=== PATIENT | male | born 1960 | race Caucasian/White ===

== ENCOUNTER 2025-01-03 02:51 | Emergency (ER) | payer OTHER ==
[~2025-01-03] VITALS: Ht 175.3 cm; Wt 118.0 kg
[2025-01-03 02:52] VITALS: TEMP 98.1
[2025-01-03 03:17] LABS: BASOPHILS # (AUTO) 0.1 X10'3 (0-0.2); EOSINOPHILS # (AUTO) 0.3 X10'3 (0-0.9); EOSINOPHILS % (AUTO) 3.9 % (0-6); HEMATOCRIT 44.3 % (42.0-52.0); HEMOGLOBIN 14.8 g/dl (14.0-17.9); LYMPHOCYTES # (AUTO) 1.7 X10'3 (1.1-4.8); LYMPHOCYTES % (AUTO) 21.6 % (21-51); MEAN CORPUSCULAR HEMOGLOBIN 28.5 PG (27.0-31.0); MEAN CORPUSCULAR HGB CONC 33.5 g/dL (33.0-36.5); MEAN CORPUSCULAR VOLUME 84.9 FL (78-98); MONOCYTES % (AUTO) 12.3 % (2-12); NEUTROPHILS # (AUTO) 4.9 X10'3 (1.8-7.7); NEUTROPHILS % (AUTO) 61.2 % (42-75); PLATELET COUNT 234 X10'3 (140-440); RED BLOOD COUNT 5.21 X10'6 (4.70-6.10); RED CELL DISTRIBUTION WIDTH 14.8 % (11.5-14.5); WHITE BLOOD COUNT 7.9 X10'3 (4.5-11.0)
[2025-01-03 03:35] LABS: ALANINE AMINOTRANSFERASE 35 U/L (12-78); ALBUMIN 3.4 G/DL (3.4-5.0); ALBUMIN/GLOBULIN RATIO 1.1 (1.1-1.5); ALKALINE PHOSPHATASE 82 IU/L (46-116); ANION GAP 9 (8-16); ASPARTATE AMINO TRANSFERASE 18 U/L (10-37); BILIRUBIN,TOTAL 0.4 MG/DL (0.1-1.0); BLOOD UREA NITROGEN 17 MG/DL (7-18); BUN/CREATININE RATIO 15.3 (10.0-20.0); CALCIUM 8.7 MG/DL (8.5-10.1); CHLORIDE 107 MMOL/L (99-107); CREATININE 1.11 MG/DL (0.60-1.10); GLUCOSE 92 MG/DL (70-104); POTASSIUM 3.5 MMOL/L (3.5-5.1); SODIUM 141 MMOL/L (135-145); TOTAL CARBON DIOXIDE 24.7 MMOL/L (24-32); TOTAL PROTEIN 6.5 G/DL (6.4-8.2); eCRCL 69 ML/MIN; eGFR 67 ML/MIN
--- NOTE | 2025-01-03 03:39 | RADIOLOGY REPORT ---
CHEST RADIOGRAPH Indication: CP Technique: Single frontal view of the chest was obtained COMPARISON: None FINDINGS: Lines and Tubes: None Lungs: Clear Pleura: No effusion. No pneumothorax. Cardiomediastinal contours: Unremarkable Bones: Unremarkable IMPRESSION: 1. No acute disease.
[2025-01-03 03:42] LABS: PRO BRAIN NATRIURETIC PEPTIDE < 30 PG/ML (0-125)
--- NOTE | 2025-01-03 04:31 | Physician Documentation ---
History of Present Illness ~ Chief Complaint: Chest Pain Stated Complaint: SHORT OF BREATH Time Seen by MD: 04:29 Mode of Arrival: EMS HPI Patient presents to the emergency room for evaluation of chest discomfort. History of coronary artery disease but he states that this feels different. He states he woke up out of sleep feeling short of breath with chest tightness which resolved with nitroglycerin the patient states this is usual for when he takes nitroglycerin that it gives him a headache and makes his chest pain go away. Patient does smoke. No current symptoms and patient is asking to leave. He states he feels like he had a panic attack Medication Reconciliation Allergies: Coded Allergies: azithromycin (Verified Adverse Reaction, Unknown, SICK TO STOMACHE, 01/03/25) Uncoded Allergies: PENICILLIN (Allergy, Severe, 01/03/25) Review of Systems ROS All review of systems negative except as per HPI Physical Exam Vital Signs: Temperature: 98.1, Source: Oral, Heart Rate: 80, Respiratory Rate: 16, BP: 129/88, Pulse Oximetry: 96, Weight: 118.000 Physical Exam General: Patient is awake, alert, oriented x4 in no acute distress and well appearing.~ Head: Normocephalic and atraumatic. Eyes: Conjunctival normal. EOMI. PERRL. ENT: Mucous membranes moist. Neck: Supple, trachea is midline. Chest: Clear to auscultation bilaterally without rales, rhonchi, or wheezes. There is no accessory muscle use or retractions. Cardiac: RRR without murmurs, gallops, or rubs. Extremities: Normal strength. Normal range of motion. No deformities or edema. No calf tenderness to palpation Progress Results/Orders Results/Orders Orders - WES WARD MD Chest,Single View (01/03/25 03:10) Monitor (01/03/25 02:58) Saline Lock (01/03/25 02:58) Oxygen (01/03/25 02:58) Electrocardiogram (01/03/25 02:58) Hs Troponin I W Calculations (01/03/25 04:58) Hs Troponin I W Calculations (01/03/25 05:58) Completed Orders - WES WARD MD Chest,Single View (01/03/25 03:10) Cbc/Diff (01/03/25 02:58) PBNP (01/03/25 02:58) CMP (01/03/25 02:58) Hs Troponin I W Calculations (01/03/25 02:58) Vital Signs 01/03/25 01/03/25 01/03/25 01/03/25 02:52 03:01 03:06 04:05 Temp 98.1 Pulse 88 80 Resp 16 16 16 B/P (MAP) 116/69 129/88 (102) Pulse Ox 95 94 96 O2 Delivery Nasal Cannula* O2 Flow Rate 4 FiO2 36 Laboratory Tests Test 01/03/25 03:06 White Blood Count 7.9 Red Blood Count 5.21 Hemoglobin 14.8 Hematocrit 44.3 Mean Corpuscular Volume 84.9 Mean Corpuscular Hemoglobin 28.5 Mean Corpuscular Hemoglobin Concent 33.5 Red Cell Distribution Width 14.8 H Platelet Count 234 Mean Platelet Volume 7.0 L Neutrophils (%) (Auto) 61.2 Lymphocytes (%) (Auto) 21.6 Monocytes (%) (Auto) 12.3 H Eosinophils (%) (Auto) 3.9 Basophils (%) (Auto) 1.0 Neutrophils # (Auto) 4.9 Lymphocytes # (Auto) 1.7 Monocytes # (Auto) 1.0 H Eosinophils # (Auto) 0.3 Basophils # (Auto) 0.1 CBC Comment Sodium Level 141 Potassium Level 3.5 Chloride Level 107 Carbon Dioxide Level 24.7 Anion Gap 9 Blood Urea Nitrogen 17 Creatinine 1.11 H Estimated GFR/1.73 m2 67 BUN/Creatinine Ratio 15.3 Glucose Level 92 Calcium Level 8.7 Total Bilirubin 0.4 Aspartate Amino Transf (AST/SGOT) 18 Alanine Aminotransferase (ALT/SGPT) 35 Alkaline Phosphatase 82 Troponin I High Sensitivity 4 Pro-B-Type Natriuretic Peptide < 30 Total Protein 6.5 Albumin 3.4 Globulin 3.1 Albumin/Globulin Ratio 1.1 Chemistry Comments Re-Evaluation Re-Evaluation : Progress Patient's nasal cannula removed and he is saturating in the high 90s on room air EKG/XRAY/CT/US/VASC/MRI EKG : Additional Comment EKG interpreted by myself shows time of 0256, rate 81, sinus rhythm, normal axis, no ST changes Chest X-Ray : Additional Comments Exam: CHEST,SINGLE VIEW CHEST RADIOGRAPH Indication: CP Technique: Single frontal view of the chest was obtained COMPARISON: None FINDINGS: Lines and Tubes: None Lungs: Clear Pleura: No effusion. No pneumothorax. Cardiomediastinal contours: Unremarkable Bones: Unremarkable IMPRESSION: 1. No acute disease. Medical Decision Making Findings Patient presents to the emergency room with chest pain. Differentials include but are not limited to ACS, pulmonary embolism, musculoskeletal pain, panic attack, aortic pathology therefore emergent labs and imaging indicated. Chest x-ray is reassuring. Labs reassuring for negative troponins. Patient's chest pain is atypical in nature with a heart score of three. Patient is asking to leave. He has been advised to stop smoking. As patient is currently asymptomatic he had not feel he was suffering from pulmonary embolism or acute aortic pathology. Chest pain relieved with nitroglycerin however this is not increased in frequency and may represent stable angina or resolution of panic attack. Departure Disposition: HOME / SELF CARE / HOMELESS Impression: Primary Impression: Chest pain Condition: Stable Discharge Instructions: Nonspecific Chest Pain, Adult Additional Instructions: Follow up with your doctor regarding your chest pain. Return for worsening of symptoms or return if symptoms Referrals: NO PRIMARY CARE PROVIDER (PCP) Education Educated: Patient Educated regarding: diagnosis, need for follow up Signature Scribe Signature: No scribe Attestation: The note accurately reflects work and decisions made by me.Wes Ward MD 01/03/25 04:53 WES WARD MD January 03, 2025 04:31
[2025-01-03 05:22] VITALS: BP 129/88; PULSE 80; RESP 16; O2SAT 96
--- NOTE | 2025-01-03 06:52 | ELECTROCARDIOGRAPH REPORT ---
[facility] Test Date: 2025-01-03 Test Time: 02:56:42 Pat Name: AGUSTINA KIRBY Department: EMERGENCY ROOM Room: Gender: M Talent Rep: : 1960 Requested By: VINNY SAMSON Order Number: [id number] Reading MD: Measurements Intervals [place] Rate: 81 P: 46 SD: 163 QRS: 49 QRSD: 96 T: 35 QT: 379 QTc: 440 Interpretive Statements Sinus rhythm Inferior infarct, old Please click the below link to view image of tracing.
== END 2025-01-03 05:24 | disposition home or self-care (01) ==
LOC: ER 02:52
DX: R07.89 Other chest pain (principal); R06.02 Shortness of breath; I25.10 Atherosclerotic heart disease of native coronary artery without angina pectoris; Z88.1 Allergy status to other antibiotic agents
CPT/HCPCS: 36415; 71045; 80053; 83880; 84484; 85025; 93005; 99285